=== PATIENT | female | born 1980 ===

== ENCOUNTER 2016-08-12 16:18 | Emergency (ER) | payer OTHER ==
[~2016-08-12] VITALS: Ht 167.6 cm; Wt 112.9 kg
[2016-08-12 16:56] VITALS: BP 149/79
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
[2016-08-12] MEDS ORDERED: RANITIDINE HCL150 MG PO (19:53)
[2016-08-12] MEDS ORDERED: URSODIOL500 M1 PO (19:54)
[2016-08-12] MEDS ORDERED: FERROUS SULFAT325 M3 PO (19:54)
[2016-08-12] MEDS ORDERED: PANTOPRAZOLE SO40 M1 PO (19:54)
[2016-08-12] MEDS ORDERED: ADVIL LIQUI-GE200 M1 PO (19:55)
[2016-08-12] MEDS ORDERED: TYLENOL EXTRA500 M2 PO (19:55)
[2016-08-12] MEDS ORDERED: TRAMADOL HCL50 M1 PO (20:54)
[2016-08-12] MEDS ORDERED: OXYCODONE HCL5 M2 PO (21:14)
--- NOTE | 2016-08-12 21:28 | RADIOLOGY REPORT ---
EXAMINATION: XR SHOULDER, RIGHT CLINICAL INFORMATION: Left shoulder pain, recent fall COMPARISON: None TECHNIQUE: AP external rotation, Grashey, scapular Y, and axillary views of the right shoulder. FINDINGS: The images are available for my review at 9:20 PM on 08/12/2016. There is a curvilinear lucent line along the greater tuberosity of the left humerus, seen on 2 views. Possibility of a linear nondisplaced fracture line to be considered. Glenohumeral and acromioclavicular alignment is anatomic with normal joint space. No abnormal soft tissue calcifications. IMPRESSION: Questionable fracture line along the greater tuberosity of the left humeral head. No evidence of left shoulder dislocation.
--- NOTE | 2016-08-12 21:32 | RADIOLOGY REPORT ---
EXAMINATION: XR LUMBOSACRAL SPINE CLINICAL INFORMATION: Fall, pain COMPARISON: None TECHNIQUE: AP and lateral views of the lumbosacral spine were obtained. FINDINGS: The images are available for my review at 9:20 PM on 08/12/2016. The vertebral bodies and posterior elements are normal. The disc spaces are preserved and the vertebral alignment is normal. The paraspinal soft tissues are normal. No acute fracture or dislocation of lumbar spine seen on these x-rays. There are small marginal osteophytes at superior endplate of L2 and L3, degenerative in nature. Right upper quadrant surgical mehnaz, represent prior cholecystectomy. The SI joints are unremarkable. IMPRESSION: No acute fracture or dislocation of lumbar spine.
== END 2016-08-12 21:40 ==
LOC: ERH
DX: S42.254A Nondisplaced fracture of greater tuberosity of right humerus, initial encounter for closed fracture (principal); S39.012A Strain of muscle, fascia and tendon of lower back, initial encounter; V48.4XXA Person boarding or alighting a car injured in noncollision transport accident, initial encounter; Y93.89 Activity, other specified; Y92.9 Unspecified place or not applicable
CPT/HCPCS: 72110; 73030-RT; 81025